=== PATIENT | male | born 1945 | race Caucasian/White ===

== ENCOUNTER 2016-11-30 22:53 | Emergency (ER) | payer MEDICARE, BC ==
--- NOTE | ~2016-11-30 | CR63 ---
[facility] A Service of [facility] RADIOLOGY TEXT RESULTS PATIENT: SG ALCALA SR LOCATION: [facility] : 45 UNIT #: [id number] AGE: [address]: Enoc Carreon MD SEX: M ORDER DR: [id number] [facility] [address] [place], [place] [address] [id number] E MR#: [id number] Acc #: [id number] NAME: SG ALCALA SR : 1945 SEX: M STUDY DATE/TIME: 11/30/2016 22:37 UNIT: [facility] ROOM: STUDY DESCRIPTION: CR Chest 2 View Attending Physician: Enoc Carreon M.D. Ordering Physician: Enoc Carreon M.D. Primary Care Physician: Khalif Skelton Jr., M.D. MEDICAL IMAGING REPORT This report is preliminary unless electronic signature is present EXAM Chest x-ray 11/30/2016. HISTORY 70-year-old male in the ED complaining of cough and congestion beginning last evening. TECHNIQUE AP and lateral chest series. FINDINGS Heart size and pulmonary vascularity are normal. The lungs appear clear. No visible pulmonary infiltrate or pleural effusion. 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 Right shoulder arthroplasty. IMPRESSION No active disease. Dictated by... Dashawn Hearn M.D. THIS IS AN ELECTRONICALLY VERIFIED REPORT Dashawn Hearn M.D. at 12/05/2016 5:00 PM Leeroy TD: 12/01/2016 07:05 JOB #: [id number] MEDICAL IMAGING REPORT Page 1 of 1 COPY
[2016-11-30 22:35] LABS: INFLUENZA A POS (NEG); INFLUENZA B NEG (NEG)
[~2016-11-30 22:53] MED LIST: ASPIRIN EC81 M1 PO; ASPIRIN PO; BUPIVACAINE; CARDIZEM PO; CENTRUM240 ML PO; CIPRO; CIPRO250 MG PO; CRESTOR PO; DIGEX CAPSULE1 CAP; DILTIAZEM ER180 M1 PO; FISH OIL 1,0001 CAP PO; FISH OIL 1,001000 M1 PO; FLAX SEED OIL1000 M1 PO; FLEXERIL PO; FLOMAX0.4 M1 PO; GLUCOPHAGE500 MG PO; GLUCOVANCE 2.5/1 TA1 PO; GLYBURIDE2.5 M1 PO; HUMALOG100 U/M1 SQ; HYZAAR; JANUVIA PO; KEFLEX PO; LANOXIN PO; LANTUS100 UNITS/ SQ; LASIX20 MG PO; LIPITOR; LISINOPRIL20 MG PO; LORTAB 10-5001 EACH PO; LOVENOX30 MG/0.3 INJ; METFORMIN PO; NEXIUM; NIACIN500 M2 PO; NIASPAN PO; POTASSIUM CHLO10 MEQ PO; REQUIP1 MG PO; VITAMIN D1000 UNI1 PO; ZESTORETIC 20/21 TAB PO; ZETIA
== END 2016-12-01 00:13 | disposition home or self-care (01) ==
LOC: CED 22:53
PROVIDERS: Nurse Practitioner
DX: J11.1 Influenza due to unidentified influenza virus with other respiratory manifestations (principal); E11.9 Type 2 diabetes mellitus without complications; I10 Essential (primary) hypertension; Z88.8 Allergy status to other drugs, medicaments and biological substances; Z79.899 Other long term (current) drug therapy; Z79.82 Long term (current) use of aspirin; Z79.4 Long term (current) use of insulin
CPT/HCPCS: 71020; 87651; 87804; 99283

== ENCOUNTER → 2017-01-30 | Outpatient (CLI) | payer MEDICARE, BC | END | disposition home or self-care (01) | LOC: CLAB 10:21 | DX: E11.65 Type 2 diabetes mellitus with hyperglycemia (principal) | CPT/HCPCS: 36415; 83036 ==

== ENCOUNTER → 2017-05-08 | Outpatient (CLI) | payer MEDICARE, BC | END | disposition home or self-care (01) | LOC: CLAB 09:06 | DX: E11.65 Type 2 diabetes mellitus with hyperglycemia (principal); I10 Essential (primary) hypertension; E78.4 Other hyperlipidemia; Z79.4 Long term (current) use of insulin | CPT/HCPCS: 36415; 83036 ==

== ENCOUNTER 2017-05-16 20:03 | Emergency (ER) | payer MEDICARE, BC ==
[~2017-05-16] VITALS: Ht 193 cm; Wt 147.4 kg
--- NOTE | ~2017-05-16 | EKG ---
PATIENT: SG ALCALA UNIT #: [id number] Ventricular Rate: 83 BPM Atrial Rate: 83 BPM P-R Interval: 194 ms QRS Duration: 92 ms Q-T Interval: 364 ms QTC Calculation(Bezet): 427 ms P [place]: 34 degrees Calculated R [place]: -28 degrees Calculated T [place]: 31 degrees Diagnosis Line: Sinus rhythm with Premature supraventricular Diagnosis Line: complexes Diagnosis Line: Septal infarct (cited on or before 27-APR-2010) Diagnosis Line: Abnormal ECG Diagnosis Line: When compared with ECG of 16-MAY-2017 20:13, Diagnosis Line: (unconfirmed) Diagnosis Line: Premature supraventricular complexes are now Diagnosis Line: Present Diagnosis Line: Confirmed by COLETTE SALAS MD ([id number]) on Diagnosis Line: 05/18/2017 10:51:28 AM INTERPRETING MD: JOSUE MAIER
--- NOTE | ~2017-05-16 | CR72 ---
[facility] A Service of [facility] RADIOLOGY TEXT RESULTS PATIENT: GS ALCALA LOCATION: [facility] : 45 UNIT #: [id number] AGE: [address]: Dianna Morrison MD SEX: M ORDER DR: [id number] [facility] [address] [place], [place] [address] [id number] E MR#: [id number] Acc #: [id number] NAME: SG ALCALA. : 1945 SEX: M STUDY DATE/TIME: 05/16/2017 21:43 UNIT: [facility] ROOM: STUDY DESCRIPTION: CR Chest Single View Portable Attending Physician: Dianna Morrison M.D. Referring Physician: Khalif Skelton Jr., M.D. Ordering Physician: Dianna Morrison M.D. Primary Care Physician: Khalif Skelton Jr., M.D. MEDICAL IMAGING REPORT This report is preliminary unless electronic signature is present EXAM Frontal chest 05/16/2017 INDICATION 71-year-old male with chest pain on the left and shortness of air today. No known injury. Hypertension. TECHNIQUE Frontal chest compared with 12/04/2016. FINDINGS The heart is enlarged but stable. There is old healed granulomatous disease. Lung volumes are lower with bronchovascular crowding favored over mild central vascular congestion. Correlate with volume status however. There is old healed granulomatous disease. No effusion, dense consolidation or pneumothorax. Probable faint atelectasis in the lower lung zone. IMPRESSION 1. Cardiomegaly with low lung volumes and bronchovascular crowding favored over mild central vascular congestion. 2. Old healed granulomatous disease. No effusion or dense consolidation 3. Status post right shoulder replacement. Dictated by... Maykel Ramon M.D. THIS IS AN ELECTRONICALLY VERIFIED REPORT Maykel Ramon M.D. at 05/17/2017 11:22 AM SIMIN/jacky TD: 05/17/2017 10:47 JOB #: [id number] [facility] A Service of [facility] RADIOLOGY TEXT RESULTS PATIENT: SG ALCALA LOCATION: [facility] #: [id number] : 45 UNIT #: [id number] AGE: [address]: Dianna Morrison MD SEX: M ORDER DR: MEDICAL IMAGING REPORT Page 1 of 1 COPY
--- NOTE | ~2017-05-16 | EKG ---
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
[2017-05-16 21:32] LABS: POC - CKMB 1.5 ng/mL (0.0-7.9); POC - TROPONIN <0.05 ng/mL (<=0.05)
[2017-05-16 22:17] LABS: BASOPHIL# 0.1 X10e3 (0-0.3); EOSINOPHIL# 0.3 X10e3 (0-0.7); EOSINOPHIL% 3.9 % (0.0-7.0); HEMATOCRIT 43.1 % (38.0-50.0); HEMOGLOBIN 14.2 gm/dL (13.0-16.0); LYMPHOCYTE# 2.5 X10e3 (1.0-3.5); LYMPHOCYTE% 36.6 % (17.0-45.0); MEAN PLATELET VOLUME 8.8 FL (6.5-11.5); MONOCYTE# 0.6 X10e3 (0-1.0); MONOCYTE% 8.9 % (3.0-12.0); NEUTROPHIL# 3.3 X10e3 (1.5-7.1); NEUTROPHIL% 49.6 % (40-75); PLATELET COUNT 207 X10e3 (140-420); RED CELL DISTRIBUTION WIDTH 13.4 % (11.0-15.5); WHITE BLOOD COUNT 6.7 X10e3 (4.0-10.5)
[2017-05-16 22:21] LABS: DIFF IND NO
[2017-05-16 22:53] LABS: BUN/CREATININE RATIO 13.63; CALCIUM SERUM 8.7 mg/dL (8.4-10.2); CREATININE SERUM 1.1 mg/dL (0.6-1.4); GLOM FILT RATE Estimated 67.2 mL/min (>60); POTASSIUM 3.6 mmol/L (3.5-5.1)
[2017-05-16 23:38] LABS: POC - CKMB 1.3 ng/mL (0.0-7.9); POC - TROPONIN <0.05 ng/mL (<=0.05)
== END 2017-05-17 00:25 | disposition home or self-care (01) ==
LOC: CED 20:03
PROVIDERS: Emergency Medicine
DX: R07.89 Other chest pain (principal); E11.9 Type 2 diabetes mellitus without complications; Z88.8 Allergy status to other drugs, medicaments and biological substances; Z79.82 Long term (current) use of aspirin; Z79.899 Other long term (current) drug therapy
CPT/HCPCS: 36415; 71010; 80048; 82553; 84484; 85025; 93005; 99285